=== PATIENT | male | born 1950 | race Caucasian/White ===

== ENCOUNTER 2018-07-28 17:33 | Emergency (ER) | payer MEDICARE ==
[~2018-07-28] VITALS: Ht 180.3 cm; Wt 81.6 kg
[2018-07-28 18:20] VITALS: BP 167/80
== END 2018-07-28 18:24 | disposition home or self-care (01) ==
LOC: FSED 17:33
DX: S00.83XA Contusion of other part of head, initial encounter (principal); S00.81XA Abrasion of other part of head, initial encounter; S00.211A Abrasion of right eyelid and periocular area, initial encounter; M54.2 Cervicalgia; W18.09XA Striking against other object with subsequent fall, initial encounter; Y92.008 Other place in unspecified non-institutional (private) residence as the place of occurrence of the external cause
CPT/HCPCS: 99283

== ENCOUNTER 2021-09-25 20:26 | Emergency (ER) | payer MEDICARE, OTHER ==
[~2021-09-25] VITALS: Ht 180.3 cm; Wt 81.6 kg
[2021-09-25] MEDS ORDERED: BROMFED DM COU118 ML PO (21:57)
[2021-09-25] MEDS ORDERED: CEFDINIR300 MG PO (21:57)
== END 2021-09-25 22:29 | disposition home or self-care (01) ==
LOC: FSED 20:38
DX: R05.9 Cough, unspecified (principal); J20.9 Acute bronchitis, unspecified; M10.9 Gout, unspecified
CPT/HCPCS: 71045; 99283